=== PATIENT | female | born 1995 | race Caucasian/White ===

== ENCOUNTER 2021-01-11 05:18 | Observation (INO) ==
[2021-01-11] MEDS ORDERED: DILAUDID INJ IM ONE (05:57)
[2021-01-11] MEDS ORDERED: ZOFRAN INJ 4 MG VIAL IVP ONE (05:57)
[2021-01-11] MEDS ORDERED: NS 1000 ML 1,000 ML IV ONE (05:57)
[2021-01-11] MEDS ORDERED: DILAUDID INJ ONE ×2 (06:02→13:35)
[2021-01-11] MEDS ORDERED: NS 1000 ML 1,000 ML ONE (06:03)
[2021-01-11] MEDS ORDERED: ZOFRAN INJ 4 MG VIAL ONE ×2 (06:03→12:20)
--- NOTE | 2021-01-11 06:05 | ED.ABDFE ---
HPI <RONAK PELAEZ - Last Filed: 01/11/21 06:05> Time Seen Time Seen by Provider: 01/11/21 05:56 PCP Primary Care Physician: NONE HPI Comment HPI Comment: A 25 y/o female presenting with c/o RLQ abdominal pain for about a week. It worsened in intensity yesterday. The pain has been there constantly and with periods of exacerbation. It is described as a sharp pain and is not radiating. There is associated nausea. Complaint Chief Complaint:: DX WITH COVID 12/31/2020, SINCE WITH BOUTS OF RLQ PAIN, SHARP IN NATURE, SEVERE SINCE 1899. NAUSEATED, LOOSE STOOL NOT DIARRHEA. Self Treatment fo Chief Complaint: TYLENOL YESTERDAY, MOTRIN AT 0300 COVID-19 Coronavirus risk:travel/contact w/high risk person: Yes Has patient experienced Coronavirus symptoms: Yes Coronavirus symptoms experienced: Fever and Coughing Reviewed Nurses Notes Review: Yes Source History Provided: Patient Mode of arrival Mode of Arrival: Wheelchair Timing Onset of Chief Complaint: 12/31/20 Came on: Gradually Duration How lon Duration: Days Location Location: [facility] Quality Quality: Sharp Context History of: None Modifying factors Worsening Factors: Nothing Associated signs and symptoms Associated Signs and Symptoms: Nausea PMH <RONAK PELAEZ - Last Filed: 01/11/21 06:05> PMH Past Medical History: No Past Surgical History: Yes Surgical History: Other Past Surgical History Comment: WISDOM TEETH EXTRACTION Family History History of Family Medical Conditions: Yes Family Medical History: Diabetes Mellitus, Cancer and Coronary Artery Disease Social History Does patient currently use any type of tobacco product: No Have you used tobacco products in the last 12 months: No Type of Tobacco Use: None Does any household member use tobacco: No Alcohol Use: Occasionally Do you use any recreational Drugs:: No Lives With: Spouse Lives Where: Home Travel Risk Coronavirus risk:travel/contact w/high risk person: Yes Has patient experienced Coronavirus symptoms: Yes Coronavirus symptoms experienced: Fever and Coughing Infectious screening In the last 2 months have you had wt loss of >10#?: NO Have you had fever, night sweats or hemotysis?: No Have you traveled outside the country in the last 6 months?: No Isolation: Droplet ROS <RONAK PELAEZ - Last Filed: 01/11/21 06:05> Review of Systems Constitutional: No Symptoms Reported Eyes: No Symptoms Reported ENTM: No Symptoms Reported Respiratoy: No Symptoms Reported Cardiovascular: No Symptoms Reported Gastrointestinal/Abdominal: Abdominal Pain (RLQ) Genitourinary: No Symptoms Reported Neurological: No Symptoms Reported Musculoskeletal: No Symptoms Reported Integumentary: No Symptoms Reported Hematologic/Lymphatic: No Symptoms Reported Endocrine: No Symptoms Reported Psychiatric: No Symptoms Reported PE <RONAK PELAEZ - Last Filed: 01/11/21 06:05> Vital Signs Vitals: Temperature 97.9 F Pulse Rate [Left] 94 Pulse Rate 104 Respiratory Rate 18 Blood Pressure [Left Arm] 120/75 Blood Pressure 137/90 O2 Sat by Pulse Oximetry 96 General Limitations: No Limitations General Appearance: Alert and In No Apparent Distress Head Head Exam: Normal Inspection, Atraumatic and Normocephalic Eyes Eye exam: Normal Appearance and EOMI ENT ENT Exam: Normal Exam, Normal Oropharynx and Normal External Ear Exam Neck Neck Exam: Normal Inspection, Full ROM and Trachea Midline Chest Chest Inspection: Normal Inspection and Symmetric Chest Wall Rise Respiratory Respiratory Exam: Normal Lung Sounds Bilat Cardiovascular Cardiovascular Exam: Regular Rate, Normal Rhythm, Normal Heart Sounds, +S1 and +S2 Abdominal Exam Abdominal Exam: Normal Inspection, Normal Bowel Sounds, Soft and Tenderness; negative Distention, Guarding, Rebound, Rigidity, Dimnished Bowel Sounds, Hyperactive Bowel Sounds, Hypoactive Bowel Sounds, Organomegaly, Trauma, Incision, Ascites, Mass, Bruit, Pulsatile Mass and Hernia Abdominal Tenderness: RLQ Rectal Rectal Exam: Deferred Back Back Exam: Normal Inspection Extremeties Extremities Exam: Normal Inspection External Exam: Female: Deferred Neurologic Neurological Exam: Alert and Oriented X3 Psychiatric Psychiatric Exam: Normal Affect Skin Skin Exam: Intact and Normal Color <Raji Esquivel - Last Filed: 01/11/21 10:50> Vital Signs Vitals: Temperature 97.9 F Pulse Rate [Left] 94 Pulse Rate 104 Respiratory Rate 18 Blood Pressure [Left Arm] 120/75 Blood Pressure 137/90 O2 Sat by Pulse Oximetry 96 <Raji Esquivel - Last Filed: 01/11/21 10:50> Treatment Treatment: Pt initially seen and worked up by Dr. Pelaez, signed over to me, Dr. Esquivel, CT of abd/pelvis pending. 0945 - pt seen and examined by me. + marked RLQ tenderness with degree of rebound. CT appears to have changes c/w appendicitis, believe I see an appendicolith, with surrounding inflammation. Awaiting CT result. Heads up to surgery for possible consult. 1015 - CT c/w acute appendicitis, possible perforation. Discussed with surgery, Dr. Healy, will take to the OR. Given IV Zosyn here in the ER. ROR <ADEWUNEDVIN FUENTESLE - Last Filed: 01/11/21 06:05> Labs Reviewed Result Diagrams: 01/11/21 06:20 01/11/21 06:20 Laboratory: WBC 11.8 X10^3/uL (3.6-10.0) H 01/11/21 06:20 RBC 4.04 X10^6/uL (3.5-5.4) 01/11/21 06:20 Hgb 12.1 g/dL (12.0-16.0) 01/11/21 06:20 Hct 34.5 % (36.0-47.0) L 01/11/21 06:20 MCV 85.6 fL (80.0-100.0) 01/11/21 06:20 MCH 30.0 pg (27.0-34.0) 01/11/21 06:20 MCHC 35.1 g/dL (33.0-35.0) H 01/11/21 06:20 RDW 11.9 % (11.6-16.5) 01/11/21 06:20 Plt Count 292 X10^3/uL (150.0-450.0) 01/11/21 06:20 MPV 7.7 fL (7.4-11.0) 01/11/21 06:20 Neut % (Auto) 81.2 % (42.0-75.0) H 01/11/21 06:20 Lymph % (Auto) 9.5 % (21.0-51.0) L 01/11/21 06:20 [place] % (Auto) 8.9 % (0.0-13.0) 01/11/21 06:20 Eos % (Auto) 0.1 % (0.9-2.9) L 01/11/21 06:20 Baso % (Auto) 0.3 % (0.2-1.0) 01/11/21 06:20 Neut # (Auto) 9.5 x10^3/uL (2.2-4.8) H 01/11/21 06:20 Lymph # (Auto) 1.1 X10^3/uL (1.3-2.9) L 01/11/21 06:20 [place] # (Auto) 1.1 x10^3/uL (0.3-0.8) H 01/11/21 06:20 Eos # (Auto) 0.0 x10^3/uL (0.0-0.2) 01/11/21 06:20 Baso # (Auto) 0.0 X10^3/uL (0.0-0.1) 01/11/21 06:20 Absolute Nucleated RBC 0.1 /100WBC 01/11/21 06:20 Sodium 137 mmol/L (136-145) 01/11/21 06:20 Corrected Sodium TNP 01/11/21 06:20 Potassium 3.3 mmol/L (3.5-5.1) L 01/11/21 06:20 Chloride 101 mmol/L (98-107) 01/11/21 06:20 Carbon Dioxide 23.0 mmol/L (21-32) 01/11/21 06:20 BUN 6 mg/dL (7-18) L 01/11/21 06:20 Creatinine 0.79 mg/dL (0.55-1.02) 01/11/21 06:20 Est GFR (MDRD) Af Amer > 60 (>60) 01/11/21 06:20 Est GFR (MDRD) Non-Af > 60 (>60) 01/11/21 06:20 Glucose 106 mg/dL (65-99) H 01/11/21 06:20 Calcium 8.8 mg/dL (8.5-10.1) 01/11/21 06:20 Corrected Calcium 9.6 mg/dL (8.5-10.1) 01/11/21 06:20 Total Bilirubin 0.80 mg/dL (0.2-1.0) 01/11/21 06:20 AST 42 Units/L (15-37) H 01/11/21 06:20 ALT 72 Units/L (12-78) 01/11/21 06:20 Alkaline Phosphatase 87 Units/L (46-116) 01/11/21 06:20 Total Protein 8.5 g/dL (6.4-8.2) H 01/11/21 06:20 Albumin 3.0 g/dL (3.4-5.0) L 01/11/21 06:20 Globulin 5.5 g/dL (2.5-4.5) H 01/11/21 06:20 Albumin/Globulin Ratio 0.5 Ratio (1.1-2.1) L 01/11/21 06:20 HCG, Qual Negative <10 mIU/mL 01/11/21 06:20 Specimen Type Clean catch urine 01/11/21 05:55 Urine Color Dark yellow (YELLOW) 01/11/21 05:55 Urine Appearance Slightly hazy (CLEAR) 01/11/21 05:55 Urine pH 6.0 (5.0 - 8.0) 01/11/21 05:55 Ur Specific [place] 1.020 (1.000-1.030) 01/11/21 05:55 Urine Protein 2+ (NEGATIVE) 01/11/21 05:55 Urine Glucose (UA) Negative (NEGATIVE) 01/11/21 05:55 Urine Ketones 3+ (NEGATIVE) 01/11/21 05:55 Urine Occult Blood 2+ (NEGATIVE) 01/11/21 05:55 Urine Nitrite Negative (NEGATIVE) 01/11/21 05:55 Urine Bilirubin Negative (NEGATIVE) 01/11/21 05:55 Urine Urobilinogen 1+ (NORMAL) 01/11/21 05:55 Ur Leukocyte Esterase Negative (NEGATIVE) 01/11/21 05:55 Urine RBC 3-5 /HPF (0-3) A 01/11/21 05:55 Urine WBC None seen /HPF (0-5) 01/11/21 05:55 Ur Squamous Epith Cells Rare /HPF (NEGATIVE) 01/11/21 05:55 Amorphous Sediment 1+ /HPF (NEGATIVE) 01/11/21 05:55 Urine Bacteria 1+ /HPF (NEGATIVE) 01/11/21 05:55 Urine Mucus Many /HPF (NEGATIVE) 01/11/21 05:55 Ur Culture Indicated? No/not indicated 01/11/21 05:55 <Raji Esquivel - Last Filed: 01/11/21 10:50> Labs Reviewed Laboratory: WBC 11.8 X10^3/uL (3.6-10.0) H 01/11/21 06:20 RBC 4.04 X10^6/uL (3.5-5.4) 01/11/21 06:20 Hgb 12.1 g/dL (12.0-16.0) 01/11/21 06:20 Hct 34.5 % (36.0-47.0) L 01/11/21 06:20 MCV 85.6 fL (80.0-100.0) 01/11/21 06:20 MCH 30.0 pg (27.0-34.0) 01/11/21 06:20 MCHC 35.1 g/dL (33.0-35.0) H 01/11/21 06:20 RDW 11.9 % (11.6-16.5) 01/11/21 06:20 Plt Count 292 X10^3/uL (150.0-450.0) 01/11/21 06:20 MPV 7.7 fL (7.4-11.0) 01/11/21 06:20 Neut % (Auto) 81.2 % (42.0-75.0) H 01/11/21 06:20 Lymph % (Auto) 9.5 % (21.0-51.0) L 01/11/21 06:20 [place] % (Auto) 8.9 % (0.0-13.0) 01/11/21 06:20 Eos % (Auto) 0.1 % (0.9-2.9) L 01/11/21 06:20 Baso % (Auto) 0.3 % (0.2-1.0) 01/11/21 06:20 Neut # (Auto) 9.5 x10^3/uL (2.2-4.8) H 01/11/21 06:20 Lymph # (Auto) 1.1 X10^3/uL (1.3-2.9) L 01/11/21 06:20 [place] # (Auto) 1.1 x10^3/uL (0.3-0.8) H 01/11/21 06:20 Eos # (Auto) 0.0 x10^3/uL (0.0-0.2) 01/11/21 06:20 Baso # (Auto) 0.0 X10^3/uL (0.0-0.1) 01/11/21 06:20 Absolute Nucleated RBC 0.1 /100WBC 01/11/21 06:20 Sodium 137 mmol/L (136-145) 01/11/21 06:20 Corrected Sodium TNP 01/11/21 06:20 Potassium 3.3 mmol/L (3.5-5.1) L 01/11/21 06:20 Chloride 101 mmol/L (98-107) 01/11/21 06:20 Carbon Dioxide 23.0 mmol/L (21-32) 01/11/21 06:20 BUN 6 mg/dL (7-18) L 01/11/21 06:20 Creatinine 0.79 mg/dL (0.55-1.02) 01/11/21 06:20 Est GFR (MDRD) Af Amer > 60 (>60) 01/11/21 06:20 Est GFR (MDRD) Non-Af > 60 (>60) 01/11/21 06:20 Glucose 106 mg/dL (65-99) H 01/11/21 06:20 Calcium 8.8 mg/dL (8.5-10.1) 01/11/21 06:20 Corrected Calcium 9.6 mg/dL (8.5-10.1) 01/11/21 06:20 Total Bilirubin 0.80 mg/dL (0.2-1.0) 01/11/21 06:20 AST 42 Units/L (15-37) H 01/11/21 06:20 ALT 72 Units/L (12-78) 01/11/21 06:20 Alkaline Phosphatase 87 Units/L (46-116) 01/11/21 06:20 Total Protein 8.5 g/dL (6.4-8.2) H 01/11/21 06:20 Albumin 3.0 g/dL (3.4-5.0) L 01/11/21 06:20 Globulin 5.5 g/dL (2.5-4.5) H 01/11/21 06:20 Albumin/Globulin Ratio 0.5 Ratio (1.1-2.1) L 01/11/21 06:20 HCG, Qual Negative <10 mIU/mL 01/11/21 06:20 Specimen Type Clean catch urine 01/11/21 05:55 Urine Color Dark yellow (YELLOW) 01/11/21 05:55 Urine Appearance Slightly hazy (CLEAR) 01/11/21 05:55 Urine pH 6.0 (5.0 - 8.0) 01/11/21 05:55 Ur Specific [place] 1.020 (1.000-1.030) 01/11/21 05:55 Urine Protein 2+ (NEGATIVE) 01/11/21 05:55 Urine Glucose (UA) Negative (NEGATIVE) 01/11/21 05:55 Urine Ketones 3+ (NEGATIVE) 01/11/21 05:55 Urine Occult Blood 2+ (NEGATIVE) 01/11/21 05:55 Urine Nitrite Negative (NEGATIVE) 01/11/21 05:55 Urine Bilirubin Negative (NEGATIVE) 01/11/21 05:55 Urine Urobilinogen 1+ (NORMAL) 01/11/21 05:55 Ur Leukocyte Esterase Negative (NEGATIVE) 01/11/21 05:55 Urine RBC 3-5 /HPF (0-3) A 01/11/21 05:55 Urine WBC None seen /HPF (0-5) 01/11/21 05:55 Ur Squamous Epith Cells Rare /HPF (NEGATIVE) 01/11/21 05:55 Amorphous Sediment 1+ /HPF (NEGATIVE) 01/11/21 05:55 Urine Bacteria 1+ /HPF (NEGATIVE) 01/11/21 05:55 Urine Mucus Many /HPF (NEGATIVE) 01/11/21 05:55 Ur Culture Indicated? No/not indicated 01/11/21 05:55 Opioid <ADEWUNMI SOBOWALE - Last Filed: 01/11/21 06:05> Opioid Risk Tool Age (Mikal box if 16-45): Yes History of Preadolescent Sexual Abuse: No Total: 1 Total Score Risk Category: Low Risk Copyright: Baljit SMITH predicting aberrant behaviors <Raji Esquivel - Last Filed: 01/11/21 10:50> Opioid Risk Tool Total: 0 Total Score Risk Category: Low Risk <ADEWUNMI SOBOWALE - Last Filed: 01/11/21 06:05> Diagnosis Discharge Problem: Appendicitis Qualifiers: Appendicitis type: acute appendicitis
[2021-01-11 06:26] LABS: BILIRUBIN,URINE NEGATIVE (NEGATIVE); BLOOD/HEMOGLOBIN,URINE 2+ (NEGATIVE); GLUCOSE, URINE NEGATIVE (NEGATIVE); KETONES,URINE 3+ (NEGATIVE); LEUKOCYTE ESTERASE ,URINE NEGATIVE (NEGATIVE); NITRITES,URINE NEGATIVE (NEGATIVE); PROTEIN,URINE 2+ (NEGATIVE); UROBILINOGEN,URINE 1+ (NORMAL)
[2021-01-11 06:37] LABS: AMORPHOUS SEDIMENT,UR 1+ /HPF (NEGATIVE); APPEARANCE,URINE SLIGHTLY HAZY (CLEAR); BACTERIA,URINE 1+ /HPF (NEGATIVE); COLOR,URINE DARK YELLOW (YELLOW); MUCUS,URINE MANY /HPF (NEGATIVE); SQUAMOUS EPITHELIAL CELL,UR RARE /HPF (NEGATIVE)
[2021-01-11 06:40] LABS: BASOPHILS % (AUTO) 0.3 % (0.2-1.0); EOSINOPHILS % (AUTO) 0.1 % (0.9-2.9); HEMATOCRIT 34.5 % (36.0-47.0); HEMOGLOBIN 12.1 g/dL (12.0-16.0); LYMPHOCYTES # (AUTO) 1.1 X10^3/uL (1.3-2.9); LYMPHOCYTES % (AUTO) 9.5 % (21.0-51.0); MEAN CORPUSCULAR HGB CONC 35.1 g/dL (33.0-35.0); MEAN CORPUSCULAR VOLUME 85.6 fL (80.0-100.0); MEAN PLATELET VOLUME 7.7 fL (7.4-11.0); MONOCYTES # (AUTO) 1.1 x10^3/uL (0.3-0.8); MONOCYTES % (AUTO) 8.9 % (0.0-13.0); NEUTROPHILS # (AUTO) 9.5 x10^3/uL (2.2-4.8); NEUTROPHILS % (AUTO) 81.2 % (42.0-75.0); PLATELET COUNT 292 X10^3/uL (150.0-450.0); RED BLOOD COUNT 4.04 X10^6/uL (3.5-5.4); RED CELL DISTRIBUTION WIDTH 11.9 % (11.6-16.5); WHITE BLOOD COUNT 11.8 X10^3/uL (3.6-10.0)
[2021-01-11 06:42] LABS: SERUM PREGNANCY TEST, QUAL NEGATIVE <10 mIU/mL
[2021-01-11 06:44] LABS: ALANINE AMINOTRANSFERASE 72 Units/L (12-78); ALKALINE PHOSPHATASE 87 Units/L (46-116); ASPARTATE AMINO TRANSFERASE 42 Units/L (15-37); BLOOD UREA NITROGEN 6 mg/dL (7-18); CALCIUM 8.8 mg/dL (8.5-10.1); CHLORIDE 101 mmol/L (98-107); COR CA(FOR HYPOALB) 9.6 mg/dL (8.5-10.1); CREATININE 0.79 mg/dL (0.55-1.02); SODIUM 137 mmol/L (136-145); TOTAL PROTEIN 8.5 g/dL (6.4-8.2); eGFR NON BLACK RACES > 60 (>60)
[2021-01-11] MEDS ORDERED: NS 100 ML IV 100 ML ONE (08:46)
--- NOTE | 2021-01-11 10:16 | CT ---
HISTORYSevere right lower quadrant painSTUDYCT abdomen pelvis with contrastTechnique: Axial post-contrast images with coronal and sagittal reformats. Dose reduction procedures were used with mA/kv adjusted for body size.COMPARISONNoneFINDINGSThe lung bases are clear. The liver, spleen, adrenal glands, and pancreas are within normal limits. No opaque stones are present within the gallbladder. The kidneys are unobstructed and without stones or masses. No ureteral calculi are identified. Abdominal aorta is normal. No periaortic lymphadenopathy is identified. There is some right lower quadrant mesenteric lymphadenopathy reactive to an inflammatory process in the pericecal region. There is a 5.5 mm calcification in the area of the cecum highly suspicious for an appendicolith likely at the orifice of the appendix. However the appendix itself is not clearly identified within the inflammatory process present. Findings are suspicious for acute appendicitis with rupture. There is some secondary inflammatory changes in the adjacent small bowel. Immediate surgical evaluation is recommended. There are no findings suggestive of colitis or diverticulitis. Examination of the pelvis demonstrated no evidence for pelvic masses or pelvic lymphadenopathy. There is some fluid within the pelvis likely related to the patient's right lower quadrant inflammatory process. No bladder abnormality is identified. No lytic or blastic skeletal lesions are identified.IMPRESSION5.5 mm appendicoliths within an area of a significant perianal cecal inflammatory process with adjacent secondary inflammation of the distal small-bowel and some mesenteric lymphadenopathy. The appendix cannot be identified within the inflammatory mass and acute appendicitis with rupture is suspected. Immediate surgical evaluation is recommended.Electronically signed by: ANDRA HERNANDES (Jan 11, 2021 10:14:38)
[2021-01-11] MEDS ORDERED: ZOSYN VIAL 3.375 GRAMS 3.375 G in NS 100 ML IV + SPIKE MINIBAG* 100 ML IV ONE (10:21)
[2021-01-11] MEDS ORDERED: ZOSYN VIAL 3.375 GRAMS IV ONE (10:25)
[2021-01-11] MEDS ORDERED: NS 100 ML IV + SPIKE MINIBAG* 100 ML IV ONE (10:26)
[2021-01-11] MEDS ORDERED: D5 1/2 NS 1000 ML 1,000 ML IV SCH (12:00)
[2021-01-11] MEDS ORDERED: BRIDION ONE (12:10)
[2021-01-11] MEDS ORDERED: FENTANYL VIAL INJ 250 mcg ONE (12:10)
[2021-01-11] MEDS ORDERED: BACTROBAN TOPICAL OINT ONE (12:13)
[2021-01-11] MEDS ORDERED: LR 1000 ML IV 1,000 ML IV ONE (12:13)
[2021-01-11] MEDS ORDERED: VERSED ONE (12:20)
[2021-01-11] MEDS ORDERED: NORCURON INJ 10 MG VIAL ONE (12:20)
[2021-01-11] MEDS ORDERED: DIPRIVAN VIAL ONE (12:20)
[2021-01-11] MEDS ORDERED: TORADOL 30 MG VIAL ONE (12:20)
[2021-01-11] MEDS ORDERED: SUPRANE ONE (12:20)
[2021-01-11] MEDS ORDERED: QUELICIN (OR ANECTINE) ONE (12:20)
[2021-01-11] MEDS ORDERED: FLAGYL IV PREMIX 500 MG BAG 500 MG/100 ML BAG IV ONE (12:52)
[2021-01-11] MEDS: DILAUDID INJ IVP PRN ×6 (13:32→22:43)
[2021-01-11] MEDS ORDERED: BARHEMSYS INJ IVP PRN (13:41)
[2021-01-11] MEDS ORDERED: ZOFRAN INJ 4 MG VIAL IVP PRN (13:41)
[2021-01-11] MEDS ORDERED: BENADRYL INJ 50 MG VIAL IVP PRN (13:41)
[2021-01-11] MEDS ORDERED: REGLAN INJ 10 MG VIAL IVP PRN (13:41)
[2021-01-11] MEDS ORDERED: PHENERGAN INJ 25 MG IM PRN (13:41)
--- NOTE | 2021-01-11 15:42 | OR.IMMED ---
Immediate Post-Op Note - Immediate Post-Op Note Pre-Op Diagnosis: acute perforated appedicitis with iflammation RLQ Post-Op Diagnosis: acute perforated appendicitis with abscess formation and inflamatory mass in the RLQ .. see report . Procedure: diagnostic laparoscopy . drainage RLQ . excision of necrotic tissue . Surgeon/Garden Machinery Mechanic: Dr Aldrich Drains: Jacek Benoit Condition: Stable (on IV ATB .. IVF . clear liquid .)
[2021-01-11] MEDS: FLAGYL IV PREMIX 500 MG BAG 500 MG/100 ML BAG IV SCH ×2 (18:28→22:50)
[2021-01-11] MEDS: ZOSYN VIAL 3.375 GRAMS 3.375 G in NS 100 ML IV + SPIKE MINIBAG* 100 ML IV SCH ×2 (18:29→22:50)
[2021-01-11] MEDS: ZOFRAN INJ 4 MG VIAL IVP PRN (18:37)
[2021-01-12] MEDS: TYLENOL 325 MG TAB PO PRN (02:08)
[2021-01-12] MEDS: D5 1/2 NS 1000 ML 1,000 ML IV SCH ×5 (03:03→22:55)
[2021-01-12] MEDS: DILAUDID INJ IVP PRN ×2 (03:50→08:11)
[2021-01-12] MEDS: FLAGYL IV PREMIX 500 MG BAG 500 MG/100 ML BAG IV SCH ×4 (03:50→19:59)
[2021-01-12] MEDS: ZOSYN VIAL 3.375 GRAMS 3.375 G in NS 100 ML IV + SPIKE MINIBAG* 100 ML IV SCH ×3 (05:12→22:55)
[2021-01-12 06:49] VITALS: BMI 30.5
[2021-01-12] MEDS: ZOFRAN INJ 4 MG VIAL IVP PRN (08:12)
[2021-01-12] MEDS ORDERED: DILAUDID INJ IVP PRN (08:21)
[2021-01-12] MEDS: PERCOCET TAB 5/325 MG PO PRN ×4 (08:40→23:36)
[2021-01-12 08:46] LABS: BASOPHILS # (AUTO) 0.1 X10^3/uL (0.0-0.1); BASOPHILS % (AUTO) 0.9 % (0.2-1.0); EOSINOPHILS % (AUTO) 0.1 % (0.9-2.9); HEMOGLOBIN 11.6 g/dL (12.0-16.0); LYMPHOCYTES # (AUTO) 1.2 X10^3/uL (1.3-2.9); LYMPHOCYTES % (AUTO) 10.7 % (21.0-51.0); MEAN CORPUSCULAR HGB CONC 35.1 g/dL (33.0-35.0); MEAN CORPUSCULAR VOLUME 85.5 fL (80.0-100.0); MONOCYTES # (AUTO) 1.1 x10^3/uL (0.3-0.8); MONOCYTES % (AUTO) 10.4 % (0.0-13.0); NEUTROPHILS # (AUTO) 8.4 x10^3/uL (2.2-4.8); NEUTROPHILS % (AUTO) 77.9 % (42.0-75.0); PLATELET COUNT 331 X10^3/uL (150.0-450.0); RED BLOOD COUNT 3.86 X10^6/uL (3.5-5.4); WHITE BLOOD COUNT 10.8 X10^3/uL (3.6-10.0)
[2021-01-12 08:58] LABS: ALANINE AMINOTRANSFERASE 69 Units/L (12-78); ALBUMIN 2.5 g/dL (3.4-5.0); ALKALINE PHOSPHATASE 79 Units/L (46-116); ASPARTATE AMINO TRANSFERASE 38 Units/L (15-37); BLOOD UREA NITROGEN 4 mg/dL (7-18); CALCIUM 8.3 mg/dL (8.5-10.1); CARBON DIOXIDE 25.5 mmol/L (21-32); CHLORIDE 101 mmol/L (98-107); COR CA(FOR HYPOALB) 9.5 mg/dL (8.5-10.1); COR NA(FOR HYPERGLY) 138 mmol/L (136-145); CREATININE 0.81 mg/dL (0.55-1.02); SODIUM 137 mmol/L (136-145); TOTAL PROTEIN 7.4 g/dL (6.4-8.2); eGFR NON BLACK RACES > 60 (>60)
[2021-01-12] MEDS ORDERED: POTASSIUM CHL 40 MEQ/NS 0.45% 500 ML IV PRN (09:32)
[2021-01-12] MEDS ORDERED: MAGNESIUM SULFATE 1 GRAM/100 mL PREMIX 1 GM/100 ML BAG IV PRN (09:32)
[2021-01-12] MEDS ORDERED: POTASSIUM CHL 60 MEQ/NS 0.45% 500 ML IV PRN (09:32)
[2021-01-12] MEDS ORDERED: KLOR-CON PO PRN (09:32)
[2021-01-12] MEDS ORDERED: MICRO K EXTEN CAP 10 MEQ PO PRN (09:32)
[2021-01-12] MEDS ORDERED: K-RIDER 10 MEQ/NS 100 ML 10 MEQ/100 ML BAG IV PRN (09:32)
[2021-01-12] MEDS ORDERED: POTASSIUM CHLORIDE LIQ 20 MEQ UDC PO PRN (09:32)
[2021-01-12] MEDS: MYLICON TAB 80 MG CHEW PO PRN ×3 (10:56→23:36)
[2021-01-12] MEDS: PHENERGAN INJ 25 MG IM PRN (13:45)
[2021-01-12] MEDS: K-DUR TAB 20 MEQ PO PRN (15:17)
[2021-01-13] MEDS: TYLENOL 325 MG TAB PO PRN ×2 (01:29→05:39)
[2021-01-13] MEDS: PERCOCET TAB 5/325 MG PO PRN ×4 (03:26→19:35)
[2021-01-13] MEDS: FLAGYL IV PREMIX 500 MG BAG 500 MG/100 ML BAG IV SCH ×3 (03:29→17:37)
[2021-01-13] MEDS: ZOSYN VIAL 3.375 GRAMS 3.375 G in NS 100 ML IV + SPIKE MINIBAG* 100 ML IV SCH ×3 (05:41→21:57)
[2021-01-13] MEDS: D5 1/2 NS 1000 ML 1,000 ML IV SCH ×4 (05:57→21:58)
[2021-01-13] MEDS: ZOFRAN INJ 4 MG VIAL IVP PRN (08:37)
[2021-01-13] MEDS ORDERED: MORPHINE SULFATE INJ 2 MG INJ IVP PRN (08:38)
[2021-01-13 09:11] LABS: BASOPHILS # (AUTO) 0.1 X10^3/uL (0.0-0.1); BASOPHILS % (AUTO) 0.5 % (0.2-1.0); EOSINOPHILS % (AUTO) 0.1 % (0.9-2.9); HEMATOCRIT 32.7 % (36.0-47.0); HEMOGLOBIN 11.4 g/dL (12.0-16.0); LYMPHOCYTES # (AUTO) 0.9 X10^3/uL (1.3-2.9); LYMPHOCYTES % (AUTO) 6.4 % (21.0-51.0); MEAN CORPUSCULAR HEMOGLOBIN 29.4 pg (27.0-34.0); MEAN CORPUSCULAR HGB CONC 34.8 g/dL (33.0-35.0); MEAN CORPUSCULAR VOLUME 84.6 fL (80.0-100.0); MEAN PLATELET VOLUME 7.4 fL (7.4-11.0); MONOCYTES # (AUTO) 0.9 x10^3/uL (0.3-0.8); MONOCYTES % (AUTO) 6.5 % (0.0-13.0); NEUTROPHILS # (AUTO) 11.9 x10^3/uL (2.2-4.8); NEUTROPHILS % (AUTO) 86.5 % (42.0-75.0); PLATELET COUNT 325 X10^3/uL (150.0-450.0); RED BLOOD COUNT 3.86 X10^6/uL (3.5-5.4); RED CELL DISTRIBUTION WIDTH 12.1 % (11.6-16.5); WHITE BLOOD COUNT 13.7 X10^3/uL (3.6-10.0)
--- NOTE | 2021-01-13 09:12 | DR.PROGNOT ---
Hospital Progress Notes - Progress Note for Day of: Progress Note Date: 01/13/21 - Chief Complaint Chief Complaint: feeling better today . the pain is controlled . still having nausea . passing flatus , no BM. afebrile .. - Past Medical Family Social History Past Med/Fam/Surg Hx: No changes since H&P Allergies: Allergies No Known Drug Allergies Allergy (Verified 01/11/21 05:38) - Review Of Systems ROS: No change since H&P - Vital Signs Vital Signs: Temperature 98.8 F Pulse Rate [Left] 93 Pulse Rate 94 Respiratory Rate 18 Blood Pressure [Right Arm] 113/76 Blood Pressure [Left Arm] 117/83 Blood Pressure 113/70 O2 Sat by Pulse Oximetry 96 - Physical Exam Oriented: Normal Eyes: Normal Ear: Right Nose: Normal Throat: Normal Respiratory: Normal Cardiovascular: Normal : Normal GI:Auscultation: Decreased GI:Palpation: Normal GI: Tenderness: RLQ (soft abdomen with moderate RT side tenderness .. hypoactive BS .) Mood Description: Calm Speech Pattern: Clear, Appropriate - Laboratory and Diagnostics Result Diagrams: 01/12/21 08:07 01/12/21 08:07 Labs: Laboratory WBC 10.8 X10^3/uL (3.6-10.0) H 01/12/21 08:07 RBC 3.86 X10^6/uL (3.5-5.4) 01/12/21 08:07 Hgb 11.6 g/dL (12.0-16.0) L 01/12/21 08:07 Hct 33.0 % (36.0-47.0) L 01/12/21 08:07 MCV 85.5 fL (80.0-100.0) 01/12/21 08:07 MCH 30.0 pg (27.0-34.0) 01/12/21 08:07 MCHC 35.1 g/dL (33.0-35.0) H 01/12/21 08:07 RDW 12.0 % (11.6-16.5) 01/12/21 08:07 Plt Count 331 X10^3/uL (150.0-450.0) 01/12/21 08:07 MPV 8.0 fL (7.4-11.0) 01/12/21 08:07 Neut % (Auto) 77.9 % (42.0-75.0) H 01/12/21 08:07 Lymph % (Auto) 10.7 % (21.0-51.0) L 01/12/21 08:07 [place] % (Auto) 10.4 % (0.0-13.0) 01/12/21 08:07 Eos % (Auto) 0.1 % (0.9-2.9) L 01/12/21 08:07 Baso % (Auto) 0.9 % (0.2-1.0) 01/12/21 08:07 Neut # (Auto) 8.4 x10^3/uL (2.2-4.8) H 01/12/21 08:07 Lymph # (Auto) 1.2 X10^3/uL (1.3-2.9) L 01/12/21 08:07 [place] # (Auto) 1.1 x10^3/uL (0.3-0.8) H 01/12/21 08:07 Eos # (Auto) 0.0 x10^3/uL (0.0-0.2) 01/12/21 08:07 Baso # (Auto) 0.1 X10^3/uL (0.0-0.1) 01/12/21 08:07 Absolute Nucleated RBC 0.0 /100WBC 01/12/21 08:07 Sodium 137 mmol/L (136-145) 01/12/21 08:07 Corrected Sodium 138 mmol/L (136-145) 01/12/21 08:07 Potassium 3.3 mmol/L (3.5-5.1) L 01/12/21 08:07 Chloride 101 mmol/L (98-107) 01/12/21 08:07 Carbon Dioxide 25.5 mmol/L (21-32) 01/12/21 08:07 BUN 4 mg/dL (7-18) L 01/12/21 08:07 Creatinine 0.81 mg/dL (0.55-1.02) 01/12/21 08:07 Est GFR (MDRD) Af Amer > 60 (>60) 01/12/21 08:07 Est GFR (MDRD) Non-Af > 60 (>60) 01/12/21 08:07 Glucose 121 mg/dL (65-99) H 01/12/21 08:07 Calcium 8.3 mg/dL (8.5-10.1) L 01/12/21 08:07 Corrected Calcium 9.5 mg/dL (8.5-10.1) 01/12/21 08:07 Magnesium 2.5 mg/dL (1.7-2.9) 01/12/21 08:07 Total Bilirubin 1.00 mg/dL (0.2-1.0) 01/12/21 08:07 AST 38 Units/L (15-37) H 01/12/21 08:07 ALT 69 Units/L (12-78) 01/12/21 08:07 Alkaline Phosphatase 79 Units/L (46-116) 01/12/21 08:07 Total Protein 7.4 g/dL (6.4-8.2) 01/12/21 08:07 Albumin 2.5 g/dL (3.4-5.0) L 01/12/21 08:07 Globulin 4.9 g/dL (2.5-4.5) H 01/12/21 08:07 Albumin/Globulin Ratio 0.5 Ratio (1.1-2.1) L 01/12/21 08:07 HCG, Qual Negative <10 mIU/mL 01/11/21 06:20 Specimen Type Clean catch urine 01/11/21 05:55 Urine Color Dark yellow (YELLOW) 01/11/21 05:55 Urine Appearance Slightly hazy (CLEAR) 01/11/21 05:55 Urine pH 6.0 (5.0 - 8.0) 01/11/21 05:55 Ur Specific [place] 1.020 (1.000-1.030) 01/11/21 05:55 Urine Protein 2+ (NEGATIVE) 01/11/21 05:55 Urine Glucose (UA) Negative (NEGATIVE) 01/11/21 05:55 Urine Ketones 3+ (NEGATIVE) 01/11/21 05:55 Urine Occult Blood 2+ (NEGATIVE) 01/11/21 05:55 Urine Nitrite Negative (NEGATIVE) 01/11/21 05:55 Urine Bilirubin Negative (NEGATIVE) 01/11/21 05:55 Urine Urobilinogen 1+ (NORMAL) 01/11/21 05:55 Ur Leukocyte Esterase Negative (NEGATIVE) 01/11/21 05:55 Urine RBC 3-5 /HPF (0-3) A 01/11/21 05:55 Urine WBC None seen /HPF (0-5) 01/11/21 05:55 Ur Squamous Epith Cells Rare /HPF (NEGATIVE) 01/11/21 05:55 Amorphous Sediment 1+ /HPF (NEGATIVE) 01/11/21 05:55 Urine Bacteria 1+ /HPF (NEGATIVE) 01/11/21 05:55 Urine Mucus Many /HPF (NEGATIVE) 01/11/21 05:55 Ur Culture Indicated? No/not indicated 01/11/21 05:55 SARS CoV-2 RNA Rapid SHEFALI Positive (NEGATIVE) A 01/11/21 10:52 Tissue Pathology To follow 01/11/21 13:05 - Assessment and Plan 1: s/p laparoscopy and drainage for acute ruptured appendicitis with appendiceal abscess . localizes peritonitis . Covid19 . same IV ATB .. IVF . advance diet .. - Problem Patient Problems: Patient Problems Appendicitis (Acute) K37
[2021-01-13 09:13] LABS: ALANINE AMINOTRANSFERASE 55 Units/L (12-78); ALBUMIN 2.4 g/dL (3.4-5.0); ALKALINE PHOSPHATASE 68 Units/L (46-116); ASPARTATE AMINO TRANSFERASE 27 Units/L (15-37); BLOOD UREA NITROGEN 5 mg/dL (7-18); CALCIUM 8.3 mg/dL (8.5-10.1); CARBON DIOXIDE 26.4 mmol/L (21-32); CHLORIDE 102 mmol/L (98-107); COR CA(FOR HYPOALB) 9.6 mg/dL (8.5-10.1); COR NA(FOR HYPERGLY) 139 mmol/L (136-145); CREATININE 0.79 mg/dL (0.55-1.02); SODIUM 139 mmol/L (136-145); TOTAL PROTEIN 7.4 g/dL (6.4-8.2); eGFR NON BLACK RACES > 60 (>60)
[2021-01-13] MEDS: K-DUR TAB 20 MEQ PO PRN (10:07)
[2021-01-13] MEDS: MYLICON TAB 80 MG CHEW PO PRN (10:08)
[2021-01-13] MEDS: PHENERGAN INJ 25 MG IM PRN (14:43)
[2021-01-14] MEDS: PERCOCET TAB 5/325 MG PO PRN ×6 (00:11→21:04)
[2021-01-14] MEDS: FLAGYL IV PREMIX 500 MG BAG 500 MG/100 ML BAG IV SCH ×2 (00:17→11:10)
[2021-01-14] MEDS: PHENERGAN INJ 25 MG IM PRN ×3 (00:18→21:09)
[2021-01-14] MEDS: D5 1/2 NS 1000 ML 1,000 ML IV SCH ×3 (04:59→21:06)
[2021-01-14] MEDS: ZOSYN VIAL 3.375 GRAMS 3.375 G in NS 100 ML IV + SPIKE MINIBAG* 100 ML IV SCH ×3 (04:59→22:27)
[2021-01-14] MEDS: ZOFRAN INJ 4 MG VIAL IVP PRN (08:05)
[2021-01-14 08:59] LABS: BASOPHILS # (AUTO) 0.1 X10^3/uL (0.0-0.1); BASOPHILS % (AUTO) 0.9 % (0.2-1.0); EOSINOPHILS # (AUTO) 0.1 x10^3/uL (0.0-0.2); EOSINOPHILS % (AUTO) 0.6 % (0.9-2.9); HEMATOCRIT 29.7 % (36.0-47.0); HEMOGLOBIN 10.6 g/dL (12.0-16.0); LYMPHOCYTES # (AUTO) 2.1 X10^3/uL (1.3-2.9); LYMPHOCYTES % (AUTO) 20.8 % (21.0-51.0); MEAN CORPUSCULAR HEMOGLOBIN 30.6 pg (27.0-34.0); MEAN CORPUSCULAR HGB CONC 35.6 g/dL (33.0-35.0); MEAN CORPUSCULAR VOLUME 85.8 fL (80.0-100.0); MEAN PLATELET VOLUME 7.2 fL (7.4-11.0); MONOCYTES # (AUTO) 0.7 x10^3/uL (0.3-0.8); MONOCYTES % (AUTO) 7.2 % (0.0-13.0); NEUTROPHILS % (AUTO) 70.5 % (42.0-75.0); PLATELET COUNT 359 X10^3/uL (150.0-450.0); RED BLOOD COUNT 3.46 X10^6/uL (3.5-5.4); WHITE BLOOD COUNT 9.9 X10^3/uL (3.6-10.0)
[2021-01-14 09:09] LABS: ALANINE AMINOTRANSFERASE 45 Units/L (12-78); ALBUMIN 2.2 g/dL (3.4-5.0); ALKALINE PHOSPHATASE 57 Units/L (46-116); ASPARTATE AMINO TRANSFERASE 33 Units/L (15-37); BLOOD UREA NITROGEN 6 mg/dL (7-18); CALCIUM 8.1 mg/dL (8.5-10.1); CARBON DIOXIDE 27.5 mmol/L (21-32); CHLORIDE 104 mmol/L (98-107); COR CA(FOR HYPOALB) 9.5 mg/dL (8.5-10.1); CREATININE 0.73 mg/dL (0.55-1.02); SODIUM 140 mmol/L (136-145); TOTAL PROTEIN 6.7 g/dL (6.4-8.2); eGFR NON BLACK RACES > 60 (>60)
--- NOTE | 2021-01-14 09:47 | DR.CONSULT ---
CONSULT Consultation for Day of: Date: 01/14/21 Chief Complaint Chief Complaint: Covid Allergies Allergies Allergy/AdvReac Type Severity Reaction Status Date / Time No Known Drug Allergies Allergy Verified 01/11/21 05:38 History of Present Illness History of Present Illness: This is a recently diagnosed lady with Covid. She is s/p Appendectmy. I was asked to consult for her recnt Covid diagnosis. Past Medical History Past Medical History: Past Surgical History Surgical History: Other Family History Family Medical History: Diabetes Mellitus, Cancer, [place], Coronary Artery Disease and Hypertension Social History Does patient currently use any type of tobacco product: No Have you used tobacco products in the last 12 months: No Type of Tobacco Use: None Does any household member use tobacco: No Alcohol Use: Rarely Drug Use: None Medications Home Medications: No Known Drug Allergies Allergy (Verified 01/11/21 05:38) CONTINUE taking the following medications norethindrone-e.estradiol-iron [06/14 (28)] 1 tab PO DAILY 01/11/21 [History] Review of Systems Constitutional: No Symptoms Reported Respiratory: No Symptoms Reported Cardiovascular: No Symptoms Reported Gastrointestinal: No Symptoms Reported Genitourinary: No Symptoms Reported Musculoskeletal: No Symptoms Reported Skin: No Symptoms Reported Neurological: No Symptoms Reported Physical Exam Vital Signs: Temperature 98.2 F Pulse Rate [Left] 89 Pulse Rate 94 Respiratory Rate 16 Blood Pressure [Right Arm] 117/76 Blood Pressure [Left Arm] 117/83 Blood Pressure 113/70 O2 Sat by Pulse Oximetry 99 Oriented: Normal Respiratory: Clear Throughout Skin: Normal Psychiatric: Normal Mood Description: Calm Speech Pattern: Clear Plan Plan: Covid-19: Will order CXR and CRP on patient and f/U with results. Overall patient looks good from a standpoint at this time. Labs reviewed and will follow this pt. with you.
[2021-01-14] MEDS ORDERED: ATIVAN TAB 1 MG PO PRN (09:52)
--- NOTE | 2021-01-14 09:58 | DR.PROGNOT ---
Hospital Progress Notes - Progress Note for Day of: Progress Note Date: 01/14/21 - Chief Complaint Chief Complaint: feeling better today . the pain is well controlled . very anxious. still having nausea . passing flatus and small BM. WBC is normal .. afebrile .. - Past Medical Family Social History Past Med/Fam/Surg Hx: No changes since H&P Allergies: Allergies No Known Drug Allergies Allergy (Verified 01/11/21 05:38) - Review Of Systems ROS: No change since H&P - Vital Signs Vital Signs: Temperature 98.2 F Pulse Rate [Left] 89 Pulse Rate 94 Respiratory Rate 16 Blood Pressure [Right Arm] 117/76 Blood Pressure [Left Arm] 117/83 Blood Pressure 113/70 O2 Sat by Pulse Oximetry 99 - Physical Exam Oriented: Normal Eyes: Normal Ear: Right Nose: Normal Throat: Normal Respiratory: Normal Cardiovascular: Normal : Normal GI:Auscultation: Decreased GI:Palpation: Normal GI: Tenderness: RLQ (soft abdomen with moderate RT side tenderness .. BS +) Skin: Normal Psychiatric: Normal Mood Description: Calm Speech Pattern: Clear - Laboratory and Diagnostics Result Diagrams: 01/14/21 08:36 01/14/21 08:36 Labs: Laboratory WBC 9.9 X10^3/uL (3.6-10.0) 01/14/21 08:36 RBC 3.46 X10^6/uL (3.5-5.4) L 01/14/21 08:36 Hgb 10.6 g/dL (12.0-16.0) L 01/14/21 08:36 Hct 29.7 % (36.0-47.0) L 01/14/21 08:36 MCV 85.8 fL (80.0-100.0) 01/14/21 08:36 MCH 30.6 pg (27.0-34.0) 01/14/21 08:36 MCHC 35.6 g/dL (33.0-35.0) H 01/14/21 08:36 RDW 12.0 % (11.6-16.5) 01/14/21 08:36 Plt Count 359 X10^3/uL (150.0-450.0) 01/14/21 08:36 MPV 7.2 fL (7.4-11.0) L 01/14/21 08:36 Neut % (Auto) 70.5 % (42.0-75.0) 01/14/21 08:36 Lymph % (Auto) 20.8 % (21.0-51.0) L 01/14/21 08:36 [place] % (Auto) 7.2 % (0.0-13.0) 01/14/21 08:36 Eos % (Auto) 0.6 % (0.9-2.9) L 01/14/21 08:36 Baso % (Auto) 0.9 % (0.2-1.0) 01/14/21 08:36 Neut # (Auto) 7.0 x10^3/uL (2.2-4.8) H 01/14/21 08:36 Lymph # (Auto) 2.1 X10^3/uL (1.3-2.9) 01/14/21 08:36 [place] # (Auto) 0.7 x10^3/uL (0.3-0.8) 01/14/21 08:36 Eos # (Auto) 0.1 x10^3/uL (0.0-0.2) 01/14/21 08:36 Baso # (Auto) 0.1 X10^3/uL (0.0-0.1) 01/14/21 08:36 Absolute Nucleated RBC 0.0 /100WBC 01/14/21 08:36 Sodium 140 mmol/L (136-145) 01/14/21 08:36 Corrected Sodium TNP 01/14/21 08:36 Potassium 3.5 mmol/L (3.5-5.1) 01/14/21 08:36 Chloride 104 mmol/L (98-107) 01/14/21 08:36 Carbon Dioxide 27.5 mmol/L (21-32) 01/14/21 08:36 BUN 6 mg/dL (7-18) L 01/14/21 08:36 Creatinine 0.73 mg/dL (0.55-1.02) 01/14/21 08:36 Est GFR (MDRD) Af Amer > 60 (>60) 01/14/21 08:36 Est GFR (MDRD) Non-Af > 60 (>60) 01/14/21 08:36 Glucose 90 mg/dL (65-99) 01/14/21 08:36 Calcium 8.1 mg/dL (8.5-10.1) L 01/14/21 08:36 Corrected Calcium 9.5 mg/dL (8.5-10.1) 01/14/21 08:36 Magnesium 2.5 mg/dL (1.7-2.9) 01/12/21 08:07 Total Bilirubin 0.40 mg/dL (0.2-1.0) 01/14/21 08:36 AST 33 Units/L (15-37) 01/14/21 08:36 ALT 45 Units/L (12-78) 01/14/21 08:36 Alkaline Phosphatase 57 Units/L (46-116) 01/14/21 08:36 Total Protein 6.7 g/dL (6.4-8.2) 01/14/21 08:36 Albumin 2.2 g/dL (3.4-5.0) L 01/14/21 08:36 Globulin 4.5 g/dL (2.5-4.5) 01/14/21 08:36 Albumin/Globulin Ratio 0.5 Ratio (1.1-2.1) L 01/14/21 08:36 HCG, Qual Negative <10 mIU/mL 01/11/21 06:20 Specimen Type Clean catch urine 01/11/21 05:55 Urine Color Dark yellow (YELLOW) 01/11/21 05:55 Urine Appearance Slightly hazy (CLEAR) 01/11/21 05:55 Urine pH 6.0 (5.0 - 8.0) 01/11/21 05:55 Ur Specific [place] 1.020 (1.000-1.030) 01/11/21 05:55 Urine Protein 2+ (NEGATIVE) 01/11/21 05:55 Urine Glucose (UA) Negative (NEGATIVE) 01/11/21 05:55 Urine Ketones 3+ (NEGATIVE) 01/11/21 05:55 Urine Occult Blood 2+ (NEGATIVE) 01/11/21 05:55 Urine Nitrite Negative (NEGATIVE) 01/11/21 05:55 Urine Bilirubin Negative (NEGATIVE) 01/11/21 05:55 Urine Urobilinogen 1+ (NORMAL) 01/11/21 05:55 Ur Leukocyte Esterase Negative (NEGATIVE) 01/11/21 05:55 Urine RBC 3-5 /HPF (0-3) A 01/11/21 05:55 Urine WBC None seen /HPF (0-5) 01/11/21 05:55 Ur Squamous Epith Cells Rare /HPF (NEGATIVE) 01/11/21 05:55 Amorphous Sediment 1+ /HPF (NEGATIVE) 01/11/21 05:55 Urine Bacteria 1+ /HPF (NEGATIVE) 01/11/21 05:55 Urine Mucus Many /HPF (NEGATIVE) 01/11/21 05:55 Ur Culture Indicated? No/not indicated 01/11/21 05:55 SARS CoV-2 RNA Rapid SHEFALI Positive (NEGATIVE) A 01/11/21 10:52 Tissue Pathology To follow 01/11/21 13:05 - Assessment and Plan 1: s/p laparoscopy and drainage for acute ruptured appendicitis with appendiceal abscess . localizes peritonitis . Covid19 . D/C Flagyl and add Clindamycin because of the severe nausea .. add Ativan for the anxiety . medical cosult for the Covid19. advance diet .. - Problem Patient Problems: Patient Problems Appendicitis (Acute) K37
[2021-01-14] MEDS: CLEOCIN 600 MG IV PREMIX 600 MG/50 ML BAG IV SCH ×2 (13:55→21:07)
[2021-01-14] MEDS ORDERED: FLAGYL IV PREMIX 500 MG BAG 500 MG/100 ML BAG IV SCH (15:00)
[2021-01-14] MEDS: K-DUR TAB 20 MEQ PO PRN (18:12)
--- NOTE | 2021-01-14 20:36 | RAD ---
HISTORYACCUTE APPENDICITIS, COVID+ Relevant Clinical InformationSTUDYCHEST, 1 VIEWCOMPARISONNoneFINDINGSThe trachea is midline. The cardiac silhouette is unremarkable. The lungs are clear without focal infiltrate or effusion. The bony thorax is unremarkable.IMPRESSIONNo acute cardiopulmonary disease.Electronically signed by: WADE CARROLL (Jan 14, 2021 20:34:43)
[2021-01-14] MEDS: TYLENOL 325 MG TAB PO PRN (23:48)
[2021-01-14] MEDS: MYLICON TAB 80 MG CHEW PO PRN (23:50)
[2021-01-15] MEDS: PERCOCET TAB 5/325 MG PO PRN ×3 (01:05→11:38)
[2021-01-15] MEDS: D5 1/2 NS 1000 ML 1,000 ML IV SCH (03:40)
[2021-01-15] MEDS: PHENERGAN INJ 25 MG IM PRN (04:33)
[2021-01-15] MEDS: CLEOCIN 600 MG IV PREMIX 600 MG/50 ML BAG IV SCH ×2 (05:00→14:33)
[2021-01-15] MEDS: ZOSYN VIAL 3.375 GRAMS 3.375 G in NS 100 ML IV + SPIKE MINIBAG* 100 ML IV SCH ×2 (05:03→15:08)
[2021-01-15] MEDS: PROVENTIL NEB TX 0.083% 2.5MG/ 3ML NEB SCH ×3 (07:35→14:16)
--- NOTE | 2021-01-15 08:40 | PCM.PROG ---
Progress Note Progress Note for Day of Date of Exam: 01/15/21 Subjective Subjective: Breathing fine. No problems overnight. Past Medical Family Social History Past Med/Fam/Surg Hx: No changes since H&P Allergies: Allergies No Known Drug Allergies Allergy (Verified 01/11/21 05:38) Review of Systems ROS: No change since H&P Vital Signs and I&O's Vital Signs: Temperature 98.4 F Pulse Rate [Left] 84 Pulse Rate 94 Respiratory Rate 18 Blood Pressure [Right Arm] 121/73 Blood Pressure [Left Arm] 117/83 Blood Pressure 113/70 O2 Sat by Pulse Oximetry 100 Intake and Output: Intake & Output 01/12/21 01/13/21 01/14/21 01/15/21 11:59 11:59 11:59 11:59 Intake Total 2400 / 2400 2883 / 2883 3542 / 3542 5843 / 5843 Output Total 1155 / 1155 75 / 75 65 / 65 15 / 15 Balance 1245 / 1245 2808 / 2808 3477 / 3477 5828 / 5828 Physical Exam Oriented: Normal Eyes: Normal Nose: Normal Throat: Normal Respiratory: Normal Cardiovascular: Normal : Normal Auscultation: Bowel Sounds: Decreased Tenderness: RLQ (soft abdomen with moderate RT side tenderness .. BS +) Skin: Normal Psychiatric: Normal Mood Description: Calm Speech Pattern: Clear and Appropriate Laboratory and Diagnostics Result Diagrams: 01/14/21 08:36 01/14/21 08:36 Labs: Laboratory WBC 9.9 X10^3/uL (3.6-10.0) 01/14/21 08:36 RBC 3.46 X10^6/uL (3.5-5.4) L 01/14/21 08:36 Hgb 10.6 g/dL (12.0-16.0) L 01/14/21 08:36 Hct 29.7 % (36.0-47.0) L 01/14/21 08:36 MCV 85.8 fL (80.0-100.0) 01/14/21 08:36 MCH 30.6 pg (27.0-34.0) 01/14/21 08:36 MCHC 35.6 g/dL (33.0-35.0) H 01/14/21 08:36 RDW 12.0 % (11.6-16.5) 01/14/21 08:36 Plt Count 359 X10^3/uL (150.0-450.0) 01/14/21 08:36 MPV 7.2 fL (7.4-11.0) L 01/14/21 08:36 Neut % (Auto) 70.5 % (42.0-75.0) 01/14/21 08:36 Lymph % (Auto) 20.8 % (21.0-51.0) L 01/14/21 08:36 [place] % (Auto) 7.2 % (0.0-13.0) 01/14/21 08:36 Eos % (Auto) 0.6 % (0.9-2.9) L 01/14/21 08:36 Baso % (Auto) 0.9 % (0.2-1.0) 01/14/21 08:36 Neut # (Auto) 7.0 x10^3/uL (2.2-4.8) H 01/14/21 08:36 Lymph # (Auto) 2.1 X10^3/uL (1.3-2.9) 01/14/21 08:36 [place] # (Auto) 0.7 x10^3/uL (0.3-0.8) 01/14/21 08:36 Eos # (Auto) 0.1 x10^3/uL (0.0-0.2) 01/14/21 08:36 Baso # (Auto) 0.1 X10^3/uL (0.0-0.1) 01/14/21 08:36 Absolute Nucleated RBC 0.0 /100WBC 01/14/21 08:36 Sodium 140 mmol/L (136-145) 01/14/21 08:36 Corrected Sodium TNP 01/14/21 08:36 Potassium 3.5 mmol/L (3.5-5.1) 01/14/21 08:36 Chloride 104 mmol/L (98-107) 01/14/21 08:36 Carbon Dioxide 27.5 mmol/L (21-32) 01/14/21 08:36 BUN 6 mg/dL (7-18) L 01/14/21 08:36 Creatinine 0.73 mg/dL (0.55-1.02) 01/14/21 08:36 Est GFR (MDRD) Af Amer > 60 (>60) 01/14/21 08:36 Est GFR (MDRD) Non-Af > 60 (>60) 01/14/21 08:36 Glucose 90 mg/dL (65-99) 01/14/21 08:36 Calcium 8.1 mg/dL (8.5-10.1) L 01/14/21 08:36 Corrected Calcium 9.5 mg/dL (8.5-10.1) 01/14/21 08:36 Magnesium 2.5 mg/dL (1.7-2.9) 01/12/21 08:07 Total Bilirubin 0.40 mg/dL (0.2-1.0) 01/14/21 08:36 AST 33 Units/L (15-37) 01/14/21 08:36 ALT 45 Units/L (12-78) 01/14/21 08:36 Alkaline Phosphatase 57 Units/L (46-116) 01/14/21 08:36 C-Reactive Protein 78.70 mg/L (0-3.0) H 01/15/21 05:57 Total Protein 6.7 g/dL (6.4-8.2) 01/14/21 08:36 Albumin 2.2 g/dL (3.4-5.0) L 01/14/21 08:36 Globulin 4.5 g/dL (2.5-4.5) 01/14/21 08:36 Albumin/Globulin Ratio 0.5 Ratio (1.1-2.1) L 01/14/21 08:36 HCG, Qual Negative <10 mIU/mL 01/11/21 06:20 Specimen Type Clean catch urine 01/11/21 05:55 Urine Color Dark yellow (YELLOW) 01/11/21 05:55 Urine Appearance Slightly hazy (CLEAR) 01/11/21 05:55 Urine pH 6.0 (5.0 - 8.0) 01/11/21 05:55 Ur Specific [place] 1.020 (1.000-1.030) 01/11/21 05:55 Urine Protein 2+ (NEGATIVE) 01/11/21 05:55 Urine Glucose (UA) Negative (NEGATIVE) 01/11/21 05:55 Urine Ketones 3+ (NEGATIVE) 01/11/21 05:55 Urine Occult Blood 2+ (NEGATIVE) 01/11/21 05:55 Urine Nitrite Negative (NEGATIVE) 01/11/21 05:55 Urine Bilirubin Negative (NEGATIVE) 01/11/21 05:55 Urine Urobilinogen 1+ (NORMAL) 01/11/21 05:55 Ur Leukocyte Esterase Negative (NEGATIVE) 01/11/21 05:55 Urine RBC 3-5 /HPF (0-3) A 01/11/21 05:55 Urine WBC None seen /HPF (0-5) 01/11/21 05:55 Ur Squamous Epith Cells Rare /HPF (NEGATIVE) 01/11/21 05:55 Amorphous Sediment 1+ /HPF (NEGATIVE) 01/11/21 05:55 Urine Bacteria 1+ /HPF (NEGATIVE) 01/11/21 05:55 Urine Mucus Many /HPF (NEGATIVE) 01/11/21 05:55 Ur Culture Indicated? No/not indicated 01/11/21 05:55 SARS CoV-2 RNA Rapid SHEFALI Positive (NEGATIVE) A 01/11/21 10:52 Tissue Pathology To follow 01/11/21 13:05 Radiology Reviewed: Yes Plan (1) COVID: Status: Acute Plan: CRP is coming down and CXR yesterday showed it was cleared. Albuterol nebs added yesterday.
[2021-01-15] MEDS: TYLENOL 325 MG TAB PO PRN ×2 (09:00→14:18)
[2021-01-15 10:11] LABS: BASOPHILS % (AUTO) 0.4 % (0.2-1.0); EOSINOPHILS # (AUTO) 0.1 x10^3/uL (0.0-0.2); EOSINOPHILS % (AUTO) 0.6 % (0.9-2.9); HEMATOCRIT 33.3 % (36.0-47.0); HEMOGLOBIN 11.5 g/dL (12.0-16.0); LYMPHOCYTES # (AUTO) 1.9 X10^3/uL (1.3-2.9); LYMPHOCYTES % (AUTO) 22.4 % (21.0-51.0); MEAN CORPUSCULAR HGB CONC 34.5 g/dL (33.0-35.0); MEAN CORPUSCULAR VOLUME 86.9 fL (80.0-100.0); MEAN PLATELET VOLUME 7.4 fL (7.4-11.0); MONOCYTES # (AUTO) 0.7 x10^3/uL (0.3-0.8); MONOCYTES % (AUTO) 8.4 % (0.0-13.0); NEUTROPHILS # (AUTO) 5.9 x10^3/uL (2.2-4.8); NEUTROPHILS % (AUTO) 68.2 % (42.0-75.0); PLATELET COUNT 443 X10^3/uL (150.0-450.0); RED BLOOD COUNT 3.83 X10^6/uL (3.5-5.4); RED CELL DISTRIBUTION WIDTH 12.2 % (11.6-16.5); WHITE BLOOD COUNT 8.7 X10^3/uL (3.6-10.0)
[2021-01-15 10:23] LABS: ALANINE AMINOTRANSFERASE 63 Units/L (12-78); ALBUMIN 2.5 g/dL (3.4-5.0); ALKALINE PHOSPHATASE 60 Units/L (46-116); ASPARTATE AMINO TRANSFERASE 54 Units/L (15-37); BLOOD UREA NITROGEN 4 mg/dL (7-18); CALCIUM 8.4 mg/dL (8.5-10.1); CARBON DIOXIDE 26.3 mmol/L (21-32); CHLORIDE 103 mmol/L (98-107); COR CA(FOR HYPOALB) 9.6 mg/dL (8.5-10.1); CREATININE 0.74 mg/dL (0.55-1.02); SODIUM 140 mmol/L (136-145); TOTAL PROTEIN 7.3 g/dL (6.4-8.2); eGFR NON BLACK RACES > 60 (>60)
[2021-01-15 16:17] VITALS: BP 131/84
== END 2021-01-15 16:25 | disposition home or self-care (01) ==
LOC: OBS 05:18 → ER 05:18 → OBS 12:11 → MED/SURG 16:44
PROVIDERS: ADMIT Surgery; ATTEND Surgery
PROC: APPYLAP (ICD-10-PCS; 2021-01-11 11:30)
DX: U07.1 COVID-19; R79.82 Elevated C-reactive protein (CRP); K35.33 Acute appendicitis with perforation, localized peritonitis, and gangrene, with abscess